=== PATIENT | female | born 1945 | race Caucasian/White ===

== ENCOUNTER 2024-05-01 12:14 | Emergency (ER) | payer OTHER, SELFPAY ==
[2024-05-01 12:16] VITALS: BP 143/80
--- NOTE | 2024-05-01 13:44 | ED.GENMED ---
History of Present Illness
General
Chief Complaint: Bowel Problem
Source: patient
Exam Limitations: none
Time Seen by Provider: 05/01/24 13:33
History of Present Illness
History of Present Illness:
See MDM
Past History
Past History
ED Past Medical History: Asthma
ED Past Surgical History: Orthopedic
Social History
Tobacco: Non-smoker
Alcohol: None
Phy Exam
Physical Exam
Physical Exam:
See MDM
Course
Orders/Labs/Results
Orders:
Orders
05/01/24 12:23
CR Obstruct Series W/pa Chest Urgent
Comment:
Reason For Exam: constipation
05/01/24 13:42
Enema- Treatment ONCE
Type: Milk of Molasses
05/01/24 15:15
Magnesium Citrate [Citroma] 300 ml PO ONCE ONE
Vital Signs
Initial and Last Documented VS:
Initial Vital Signs
Temp Pulse Resp BP Pulse Ox
98.0 F 64 16 143/80 98
05/01/24 12:16 05/01/24 12:16 05/01/24 12:16 05/01/24 12:16 05/01/24 12:16
Last Documented Vital Signs
Temp Pulse Resp BP Pulse Ox
98.0 F 64 16 143/80 98
05/01/24 12:16 05/01/24 12:16 05/01/24 12:16 05/01/24 12:16 05/01/24 12:16
MDM/Problems Addressed
Differential Diagnosis Includes:
HPI and MDM Narrative:
78-year-old female presenting for evaluation of constipation. Patient has been taking tramadol for total knee replacement. She has had constipation issues in the past but did not think much of it since she was still going. Patient has been
struggling to go for the past day or so. She was able to have a small bowel movement earlier today
Rectal exam performed with nurse bean sprout grower Justice at bedside. There is a large amount of stool in the rectal vault. I was unable to remove it. Will give milk of molasses enema. She has no abdominal tenderness or nausea or vomiting to suspect small
bowel obstruction
Physical exam
General: Well appearing and non-toxic
HEENT: protecting airway
Neck: appears supple
CV: No evidence of cyanosis
Resp: No accessory muscle use
Abd: Non-distended. Soft and nontender
Rectal: Stool palpated in the rectal vault
Extremities: No deformities
Neuro: alert
Psych: Normal affect
Skin: Intact
Problems Addressed including Acute and Chronic Conditions affecting care:
1. Constipation
Acuity: acute
Prognosis: stable
Details: Likely opioid-induced. Will give milk molasses enema
Updates
After the enema, patient had several bowel movements and feeling better. Discussed stool softeners and magnesium citrate
Differential Diagnosis (but not limited to): Constipation, medication side effect, small bowel obstruction
Testing considered: Obstruction x-ray but no clinical signs of obstruction noted
Drug therapy (if applicable): OTC meds, please see d/c instruction regarding Rx drugs
Amount and/or Complexity of Data Reviewed
Clinical info obtained from: Patient
External data reviewed: N/A
Labs I independently reviewed (but not limited to): N/A
Radiology: N/A
Pulse Ox: not hypoxic
EKG independently reviewed: N/A
Drafter Civil: N/A
Critical Care: N/A
Risk of Complication:
Social Determinants of health: Good social support
Discussed with other providers: N/A
Escalation of Care includes Admit/Obs: After being observed in the Emergency Department, pt stable for discharge.
Occasional wrong word or 'sound a like' substitutions may have occurred due to the inherent limitations of voice recognition software. Read the chart carefully and recognize, using context, where substitutions have occurred.
*Critical Care Note
Total Time (30-74mins, 75-104mins- exclusive of procedures): Not Applicable
ED Attending Note
-
Portions of this chart may have been created with voice recognition software.� Occasional wrong word or��sound alike� substitutions may have occurred due to the inherent limitations of voice recognition software.
Discharge Plan
Departure
Patient Disposition: Home (Routine Discharge)
Date of Disposition: 05/01/24
Time of Disposition: 15:16
Patient with high blood pressure during this ER visit?: No
Discharge Problem:
Constipation
Instructions: Constipation, Adult (DC)
Referrals:
UNKNOWN - PT DOES,NOT KNOW [Family Provider] -
Activity Restrictions/Additional Instructions:
Please return for any worsening symptoms.
You may return at any time if you have further concerns.
Please follow up with your doctor at the first available appointment, preferably this week. Please start taking a daily stool softener such as docusate sodium (Colace).
If you still feel like you have mild constipation tomorrow, please take the magnesium citrate. Moving forward, you can take a dose of MiraLAX every few days if symptoms return
Thank you for choosing [facility].
Interventions
Interventions:
*Risk Screen - Suicide Last Done: 05/01/24 12:16
*General Assessment Last Done: 05/01/24 12:16
*ED COVID-19 Vaccine History Last Done: 05/01/24 12:16
BG-Ilcyue-Rxxaaxekom Assessment Last Done: 05/01/24 14:22
Discharge Date and Time
Print Language: TANZANIAN
[2024-05-01 15:23] VITALS: BP 144/82
[2024-05-01] MEDS: CITROMA 300 ML PO (15:28)
== END 2024-05-01 15:35 | disposition home or self-care (01) ==
LOC: EMR 12:14
PROVIDERS: EMERGENCY PHYSICIAN Student in an Organized Health Care Education/Training Program
DX: K59.00 Constipation, unspecified (principal)
CPT/HCPCS: 99283

== ENCOUNTER 2025-01-23 18:25 | Emergency (ER) | payer OTHER, SELFPAY ==
[2025-01-23 18:28] VITALS: BP 126/77
[2025-01-23 18:29] VITALS: BP 126/77
[2025-01-23 18:33] VITALS: BMI 37.6
[2025-01-23 18:48] LABS: % Basophils 0.8 % (0-2); % Eosinophils 1.3 % (0-6); % Immature Granulocytes 0.4 % (0-0.5); % Lymphocytes 16.9 % (20.5-51.1); % Monocytes 6.9 % (1.7-9.3); % Neutrophils 73.7 % (42.2-75.2); Absolute Basophils 0.1 10^3/uL (0-0.2); Absolute Eosinophils 0.2 10^3/uL (0-0.7); Absolute Immature Granulocytes 0.1 10^3/uL (0-0.05); Absolute Lymphocytes 2.4 10^3/uL (1.2-3.4); Absolute Neutrophils 10.5 10^3/uL (1.4-6.5); Hematocrit 42.3 % (37.0-47.0); Hemoglobin 14.5 g/dL (12.0-16.0); Mean Corp Hgb Conc. 34.3 g/dL (33.0-37.0); Mean Corpuscular Hgb 31.3 pg (27.0-31.0); Mean Corpuscular Volume 91.2 fL (81.0-99.0); Mean Platelet Volume 9.5 fL (7.4-10.4); Nucleated Red Blood Cells % 0 %; Platelet Count 332 10^3/uL (130-400); Red Blood Cell Count 4.64 10^6/uL (4.20-5.40); Red Cell Dist. Width 13.3 % (11.5-14.5); White Blood Cell Count 14.3 10^3/uL (4.8-10.8)
[2025-01-23 18:58] LABS: INR 0.99; PT 13.6 Sec (11.4-14.6)
[2025-01-23 18:59] LABS: APTT 34.3 Sec (23.4-35.0)
[2025-01-23 19:00] VITALS: BP 136/84
[2025-01-23 19:03] LABS: ALT (SGPT) 16 U/L (0-35); AST (SGOT) 19 U/L (14-36); Albumin 4.4 g/dl (3.5-5.0); Alkaline Phosphatase 73 U/L (38-126); Blood Urea Nitrogen 14 mg/dl (7-17); Calcium 9.9 mg/dl (8.4-10.2); Carbon Dioxide 29 mmol/L (22-30); Chloride 106 mmol/L (98-107); Estimated Creatinine Clearance 84 ml/min; Glucose 109 mg/dl (70-99); Potassium 3.6 mmol/L (3.5-5.1); Sodium 141 mmol/L (135-145); Total Bilirubin 0.4 mg/dl (0.2-1.3); eGFR > 60.00
--- NOTE | 2025-01-23 19:22 | ED.GENMED ---
History of Present Illness
General
Chief Complaint: Allergic Reaction
Time Seen by Provider: 01/23/25 18:30
History of Present Illness
History of Present Illness:
79-year-old female presenting to the emergency department for concern of allergic reaction. Patient reports around 3 PM she started to feel tongue swelling after she drank tonic water. Notes in the past few weeks she drank something similarly and
had minimal tongue swelling, however much more pronounced today. Denies any known additional allergies. She is not on any chronic medications. Ambulance was called and medics administered epinephrine, dexamethasone, Benadryl. She notes some mild
improvement since arrival. Denies difficulty breathing, however does have some difficulty swallowing given the size of her tongue. Denies chest pain. Denies any history of hypertension or SIDNEY inhibitor usage. Denies additional acute medical
complaints
Past History
Past History
ED Past Medical History: Asthma
ED Past Surgical History: Orthopedic
Social History
Tobacco: Non-smoker
Alcohol: None
Phy Exam
Physical Exam
Physical Exam:
General: Well-appearing, no clinical signs of dehydration, nontoxic and in no acute distress
HEENT: protecting airway. Prominent tongue swelling. No swelling to the lip. No stridor. No apparent swelling to the oral
Neck: appears supple
CV: Normal heart rate, regular rhythm
Resp: No accessory muscle use, no increased work of breathing, lungs clear to auscultation bilaterally
Abd: No distention
Extremities: No deformities, no swelling
Neuro: alert, no focal neurologic deficit
: deferred
Rectal: deferred
Psych: Normal affect
Skin: Intact
Course
Orders/Labs/Results
Orders:
Orders
01/23/25 18:41
Complete Blood Count/With Diff Urgent
Comprehensive Metabolic Panel Urgent
PTT Urgent
Prothrombin Time Urgent
Abnormal Lab Results
01/23/25
18:41
WBC 14.3 H 10^3/uL
(4.8-10.8)
MCH 31.3 H pg
(27.0-31.0)
Abs Immat Gran (auto) 0.1 H 10^3/uL
(0-0.05)
Absolute Neuts (auto) 10.5 H 10^3/uL
(1.4-6.5)
Absolute Monos (auto) 1.0 H 10^3/uL
(0.1-0.6)
Lymphocytes % 16.9 L %
(20.5-51.1)
Glucose 109 H mg/dl
(70-99)
01/23/25 18:41
01/23/25 18:41
Vital Signs
Initial and Last Documented VS:
Initial Vital Signs
Temp Pulse Resp BP Pulse Ox
98.2 F 79 22 126/77 96
01/23/25 18:28 01/23/25 18:28 01/23/25 18:28 01/23/25 18:28 01/23/25 18:28
Last Documented Vital Signs
Temp Pulse Resp BP Pulse Ox
98.2 F 73 13 136/84 94
01/23/25 18:28 01/23/25 19:00 01/23/25 19:00 01/23/25 19:00 01/23/25 19:24
MDM/Problems Addressed
MDM/Problems Addressed:
79-year-old female presenting to the emergency department with isolated tongue swelling that started around 3 PM. Vital signs normal.
On exam patient is resting comfortably, no acute distress, however obvious swelling to the tongue with concern for angioedema. No swelling to the lips or oropharynx. No stridor, no wheezing or acute respiratory distress. Patient had been given
appropriate medications prior to arrival. Patient suspects that her allergy is from the quinine in the tonic water. Plan for close monitoring of the airway and laboratory analysis.
20:00 - On reassessment, swelling is improving as well as phonation.
22:00 -patient continues to improve, is able to tolerate p.o. Patient would prefer to go home which I feel is reasonable given clinical improvement and period of observation. Will prescribe an EpiPen. Will prescribe prednisone. Otherwise advise
close outpatient primary care. Return precautions discussed and patient verbalized understanding
*Pulse Oximetry
SaO2: 94
Oxygen Mode of Delivery: Room air
*Critical Care Note
Total Time (30-74mins, 75-104mins- exclusive of procedures): Not Applicable
ED Attending Note
-
Portions of this chart may have been created with voice recognition software.� Occasional wrong word or��sound alike� substitutions may have occurred due to the inherent limitations of voice recognition software.
Discharge Plan
Departure
Referrals:
Odalis Resendiz DO [Family Provider, Family Practice]
Interventions
Interventions:
*Risk Screen - Suicide Last Done: 01/23/25 18:34
*General Assessment Last Done: 01/23/25 18:34
*Neglect/Abuse Screening Last Done: 01/23/25 18:34
*ED- Fall Risk Assessment Last Done: 01/23/25 18:34
*ED COVID-19 Vaccine History Last Done: 01/23/25 18:34
ED- Cardiac Assessment Last Done: 01/23/25 18:39
ED- Pulmonary Assessment Last Done: 01/23/25 18:39
ED-Skin Assessment Last Done: 01/23/25 18:39
Discharge Date and Time
Print Language: JAMA[place]
[2025-01-23 22:32] VITALS: BP 133/67
== END 2025-01-23 22:34 | disposition home or self-care (01) ==
LOC: EMR 18:25
PROVIDERS: EMERGENCY PHYSICIAN Student in an Organized Health Care Education/Training Program; FAMILY PHYSICIAN Family Medicine
DX: T78.3XXA Angioneurotic edema, initial encounter (principal); X58.XXXA Exposure to other specified factors, initial encounter; J45.909 Unspecified asthma, uncomplicated
CPT/HCPCS: 99283; 80053; 85025; 85610; 85730

== ENCOUNTER 2025-03-28 19:53 | Emergency (ER) | payer OTHER, SELFPAY ==
[2025-03-28 19:55] VITALS: BP 142/71
[2025-03-28 19:56] VITALS: BP 135/66
[2025-03-28 20:00] VITALS: BP 142/71
[2025-03-28 20:04] VITALS: BMI 34.2
[2025-03-28] MEDS: ADRENALIN 0.3 MG IM (20:08)
--- NOTE | 2025-03-28 20:08 | ED.GENMED ---
History of Present Illness
<Hermann Zeng PA-C - Last Filed: 03/29/25 00:37>
General
Chief Complaint: Allergic Reaction
Time Seen by Provider: 03/28/25 19:59
History of Present Illness
History of Present Illness:
79-year-old female presents to the emergency department for evaluation of acute onset of tongue angioedema that began after eating at a . She had a similar history of this earlier this summer and was treated with epinephrine with good
results. She was prescribed an EpiPen and did use this today, received IV steroids and Benadryl by EMS. She feels improved at this time. States that current symptoms are not as severe as her first onset. Denies any rhinorrhea, rashes, dyspnea,
chest tightness
Past History
<Hermann Zeng PA-C - Last Filed: 03/29/25 00:37>
Past History
ED Past Medical History: Asthma
ED Past Surgical History: Orthopedic
Social History
Tobacco: Non-smoker
Alcohol: None
Review of Systems
<Hermann Zeng PA-C - Last Filed: 03/29/25 00:37>
Review of Systems
Allergies reviewed?: Yes
All Other Systems: ROS reviewed and negative except as documented in HPI and ROS
Phy Exam
<Hermann Zeng PA-C - Last Filed: 03/29/25 00:37>
Physical Exam
Physical Exam:
GEN: Well appearing, NAD, WDWN
HEENT: Oral mucosa moist, no scleral icterus. Moderate tongue edema with no oropharyngeal edema, no lip angioedema, no periorbital edema
Cardiac: Regular rate, normal rhythm, no murmur
Lung: No respiratory distress, no tachypnea, no wheezing
MSK: No gross deformity or injuries
Skin: Good color, no pallor or jaundice, no rashes
Neuro: AO x3, moves all extremities freely
Psych: Calm, cooperative
Course
<Hermann Zeng PA-C - Last Filed: 03/29/25 00:37>
Orders/Labs/Results
Orders:
Orders
03/28/25 19:56
EPINEPHrine PF [Adrenalin] 1 mg .ROUTE .STK-MED ONE
03/28/25 19:59
EPINEPHrine PF [Adrenalin] 0.3 mg IM NOW STA
Vital Signs
Initial and Last Documented VS:
Initial Vital Signs
Temp Pulse Resp BP Pulse Ox
98.3 F 88 15 142/71 98
03/28/25 19:55 03/28/25 19:55 03/28/25 19:55 03/28/25 19:55 03/28/25 19:55
Last Documented Vital Signs
Temp Pulse Resp BP Pulse Ox
98.3 F 80 13 142/71 92
03/28/25 19:55 03/28/25 22:15 03/28/25 22:15 03/28/25 20:00 03/28/25 22:15
<Kavin Millan MD - Last Filed: 03/28/25 21:17>
Orders/Labs/Results
Orders:
Orders
03/28/25 19:56
EPINEPHrine PF [Adrenalin] 1 mg .ROUTE .STK-MED ONE
03/28/25 19:59
EPINEPHrine PF [Adrenalin] 0.3 mg IM NOW STA
Vital Signs
Initial and Last Documented VS:
Initial Vital Signs
Temp Pulse Resp BP Pulse Ox
98.3 F 88 15 142/71 98
03/28/25 19:55 03/28/25 19:55 03/28/25 19:55 03/28/25 19:55 03/28/25 19:55
Last Documented Vital Signs
Temp Pulse Resp BP Pulse Ox
98.3 F 80 13 142/71 92
03/28/25 19:55 03/28/25 22:15 03/28/25 22:15 03/28/25 20:00 03/28/25 22:15
<Hermann Zeng PA-C - Last Filed: 03/29/25 00:37>
MDM/Problems Addressed
MDM/Problems Addressed:
Patient symptoms gradually improved while in the ED. She was observed for greater than 2 hours post epinephrine with no residual symptoms. She is suitable for outpatient management. EpiPen will be refilled
<Hermann Zeng PA-C - Last Filed: 03/29/25 00:37>
*Pulse Oximetry
SaO2: 98
Oxygen Mode of Delivery: Room air
Patient hypoxic: no
*Critical Care Note
Total Time (30-74mins, 75-104mins- exclusive of procedures): Not Applicable
ED Attending Note
<Hermann Zeng PA-C - Last Filed: 03/29/25 00:37>
-
Portions of this chart may have been created with voice recognition software.� Occasional wrong word or��sound alike� substitutions may have occurred due to the inherent limitations of voice recognition software.
<Kavin Millan MD - Last Filed: 03/28/25 21:17>
ED Attending Note
Patient seen and examined by attending physician: Yes
I performed the substantive portion of visit, reviewed & personally made and approve the management plan that is documented in note by myself or NO.: Yes
ED Attending Note:
Patient presents with tongue swelling starting earlier today. Given epinephrine by the staff. Took 50 of Benadryl by the medics. 10 of Decadron by the medics. Patient states the tongue swelling has improved some. Not as bad as it was a few
months ago. No obvious precipitating event. She is on no SIDNEY inhibitors. No known allergen. No other allergic symptoms denying hives itching etc.
On exam patient is nontoxic in no distress. Speech is slightly morbidly but it understandable. No drooling no stridor. Her lungs are clear and equal. Regular rate and rhythm. Warm and dry. Perfusing well. No rash. No hives.
Impression is angioedema. Moderate. Not severe at this time. Not requiring imminent intubation. Will treat as allergic issue and observe.
2104... Patient rechecked and remained stable. Tongue swelling may be improved slightly. Clearly not worse.
Discharge Plan
Departure
Patient Disposition: Home (Routine Discharge)
Date of Disposition: 03/28/25
Time of Disposition: 22:11
Patient with high blood pressure during this ER visit?: No
Discharge Problem:
Angioedema
Instructions: Angioedema
Prescriptions:
New
epinephrine [EpiPen] 0.3 mg/0.3 mL auto-injector
0.3 mg IM .STAT PRN (Reason: anaphylaxis) Qty: 1 1RF
No Action
prednisone 20 mg tablet
40 mg PO DAILY 4 Days Qty: 8 0RF
epinephrine [EpiPen 2-Bryson] 0.3 mg/0.3 mL auto-injector
0.3 ml IM ONCE Qty: 2 0RF
Referrals:
Odalis Resendiz DO [Family Provider, Family Practice]
Interventions
Interventions:
*Risk Screen - Suicide Last Done: 03/28/25 20:02
*General Assessment Last Done: 03/28/25 20:02
*Neglect/Abuse Screening Last Done: 03/28/25 20:02
*ED- Fall Risk Assessment Last Done: 03/28/25 20:02
*ED COVID-19 Vaccine History Last Done: 03/28/25 20:02
*Nursing Disposition Last Done: 03/28/25 23:26
ED- Cardiac Assessment Last Done: 03/28/25 20:02
ED- Pulmonary Assessment Last Done: 03/28/25 20:02
ED-Skin Assessment Last Done: 03/28/25 20:02
Discharge Date and Time
Discharge Date/Time: 03/28/25 23:28
Print Language: MALAY
== END 2025-03-28 23:28 | disposition home or self-care (01) ==
LOC: EMR 19:53
PROVIDERS: EMERGENCY PHYSICIAN Emergency Medicine; FAMILY PHYSICIAN Family Medicine
DX: T78.3XXA Angioneurotic edema, initial encounter (principal); X58.XXXA Exposure to other specified factors, initial encounter; J45.909 Unspecified asthma, uncomplicated
CPT/HCPCS: 96372; 99284